=== PATIENT | male | born 1960 | race African-American/Black ===

== ENCOUNTER 2021-06-22 20:42 | Emergency (ER) | payer OTHER, SELFPAY ==
[2021-06-22 20:43] VITALS: BP 144/77; PULSE 76; RESP 18; TEMP 36.9; O2SAT 89; BMI 31.8
--- NOTE | 2021-06-22 20:57 | EKG12_ITS ---
Test Reason : LOW BLOOD SUGAR Blood Pressure : / mmHG Vent. Rate : 080 BPM Atrial Rate : 080 BPM P-R Int : 174 ms QRS Dur : 090 ms QT Int : 354 ms P-R-T Axes : 059 032 030 degrees QTc Int : 408 ms Normal sinus rhythm nonspecific T wave abnormality Abnormal ECG Confirmed by JENIFFER MORRISON, DERIC ([id number]), digital editor ALLYN PALACIOS ([id number]) on 06/25/2021 11:15:36 AM Referred By: JOEY Confirmed By:DERIC SWIFT MD
[2021-06-22] MEDS: Dextrose 10%-Water 250 ML 999 ML IV (21:36)
[2021-06-22 21:42] VITALS: BP 151/72; PULSE 89; RESP 18; O2SAT 92
[2021-06-22 22:01] LABS: Bedside Glucose 66 mg/dL (74-106)
[2021-06-22 22:01] LABS: Bedside Glucose 101 mg/dL (74-106)
[2021-06-22 22:09] LABS: Absolute Lymphocyte Count 1.26 X10^3/uL (0.83-4.51); Absolute Neutrophil Count 7.1 X10^3/uL (2.0-7.7); Basophil# 0.01 X10^3/uL; Basophil% 0.1 % (0-1); Eosinophil# 0.02 X10^3/uL; Eosinophils% 0.2 % (0-5); Hematocrit 41.5 % (40-54); Hemoglobin 14.2 g/dL (13.0-16.5); Lymphocyte # 1.26 X10^3/ul (0.83-4.51); Lymphocyte % 13.9 % (19-41); Mean Corp Hgb Conc 34.2 g/dL (32-36); Mean Corpuscular Hgb 30.9 pg (27.0-32.0); Mean Corpuscular Volume 90.2 fL (80-94); Mean Platelet Vol. 10.8 fl (6.2-12.0); Monocyte# 0.65 X10^3/uL; Monocyte% 7.2 % (0-10); NRBC Flagged by Analyzer 0 % (0-5); Neutrophil # 7.12 X10^3/uL (2.7-7.7); Neutrophil % 78.3 % (47-70); Platelet Count 194 K/mm3 (150-450); RBC Distribution Width CV 12.6 % (11.6-14.6); RBC Distribution Width SD 41.5 fl (35.1-43.9); White Blood Count 9.1 K/mm3 (4.4-11.0)
[2021-06-22 22:11] LABS: Anion Gap 5 (5-15); BUN 40 mg/dL (7-18); BUN/Creat Ratio 19.6 RATIO (10-20); Calcium,Total 8.5 mg/dL (8.5-10.1); Chloride 102 mmol/L (98-107); Creatinine, Serum 2.04 mg/dL (0.70-1.30); EST Glomerular Filtration Rate 35 mL/min (>60); Est Glom Filt Rate - Afr Amer 43 mL/min (>60); Estimated Creatinine Clearance 41.21 ml/min; Glucose 110 mg/dL (74-106); Sodium Level 131 mmol/L (136-145)
[2021-06-22 22:12] VITALS: BP 151/72; PULSE 70; RESP 20; O2SAT 92
[2021-06-22] MEDS: Potassium Chloride Oral Tablet 20 MEQ 40 MEQ PO (22:42)
[2021-06-22 23:00] VITALS: RESP 18
[2021-06-22 23:01] LABS: Bedside Glucose 112 mg/dL (74-106)
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
[2021-06-23] VITALS (8 sets, daily range): BP systolic 144–163; BP diastolic 71–81; PULSE 74–75; RESP 15–18; TEMP 36.6; O2SAT 94–98
[2021-06-23 03:06] LABS: Bedside Glucose 41 mg/dL (74-106)
--- NOTE | 2021-06-23 03:18 | NURSING ---
dr lozada notified of bs 41. no orders at this time. Pt eating a meal at this time
[2021-06-23 04:01] LABS: Bedside Glucose 83 mg/dL (74-106)
[2021-06-23 05:16] LABS: Bedside Glucose 97 mg/dL (74-106)
[2021-06-23 06:36] LABS: Bedside Glucose 131 mg/dL (74-106)
--- NOTE | 2021-06-26 12:00 | CM.ED ---
ER RNCM DC F/u Call: Seen in ER 06/22/21 for Hypoglycemia. H/o DM, CHF, CKD. Was recently Dc'd from [facility] prior to this ED visit d/t hypoglycemia. Called listed cell number on demographics. No answer, VM did identify correct patient and this check writer left a VM with call back number to return call if patient has any issues, concerns, needs, or requires assistance from this check writer. Hollie Jacitno RNCM
== END 2021-06-23 06:55 | disposition home or self-care (01) ==
PROVIDERS: Emergency Provider Emergency Medicine; PCP Family Medicine; Visit Provider Emergency Medicine
DX: E16.2 Hypoglycemia, unspecified (principal); I50.9 Heart failure, unspecified; E87.6 Hypokalemia; F17.210 Nicotine dependence, cigarettes, uncomplicated; Z79.899 Other long term (current) drug therapy
CPT/HCPCS: 80048; 82962; 85025; 93005; 96365; 99285; A4216